=== PATIENT | male | born 1990 | race Caucasian/White ===

== ENCOUNTER 2024-04-16 16:29 | Outpatient (REF) | payer BC, SELFPAY ==
[2024-04-18 13:12] LABS: Chlamydia Result Negative (Negative); GC Result Negative (Negative)
== END 2024-04-16 16:30 | disposition home or self-care (01) ==
LOC: LBN 16:29
PROVIDERS: PCP Family Medicine; Visit Provider Family Medicine
DX: R07.0 Pain in throat (principal); Z20.818 Contact with and (suspected) exposure to other bacterial communicable diseases; Z11.3 Encounter for screening for infections with a predominantly sexual mode of transmission
CPT/HCPCS: 87491; 87591; 87070

== ENCOUNTER 2024-04-18 04:54 | Outpatient (CLI) | payer BC, SELFPAY ==
[2024-04-20 08:52] LABS: HIV-1/2 Ag & Ab Screen Negative (Negative)
[2024-04-20 09:37] LABS: HBs Antibody, Qual Positive (See Note); HBs Antibody, Quant >1000.0 mIU/mL (See Note); Hepatitis B Core Antibody Negative (Negative); Hepatitis B surface Ag Negative (Negative); Hepatitis C Ab w Rflx HCV PCR Negative (Negative)
[2024-04-20 10:02] LABS: Syphilis Serology (RPR) Negative (Negative)
== END 2024-04-18 04:55 | disposition home or self-care (01) ==
LOC: LBO 04:54
PROVIDERS: Absent Provider Family Medicine; PCP Family Medicine; Referring Provider Family Medicine; Visit Provider Family Medicine
DX: Z11.3 Encounter for screening for infections with a predominantly sexual mode of transmission (principal)
CPT/HCPCS: 36415; 86704; 86706; 86803; 87340; 87389; 86592

== ENCOUNTER 2024-10-18 15:23 | Outpatient (REF) | payer BC, SELFPAY ==
[2024-10-22 15:37] LABS: Appearance Normal; Container Type 50 mL Conical; Double Forms 2.5 %; Grade 2.5 (>=2.5); Head Shape Abnormal 27.5 %; Midpiece Defect 24.5 %; Motile/Ejaculate 109.5 x10(6) (>=9.0); Motile/mL 43.8 x10(6) (>=6.0); Motility 56 % (>=40); Semen Volume 2.5 mL (>=1.5); Sperm/mL 78.2 x10(6) (>=15.0); Study Type Semen; Tail Defect 13.5 %
== END 2024-10-18 15:24 | disposition home or self-care (01) ==
LOC: LBN 15:23
PROVIDERS: PCP Family Medicine; Visit Provider Family Medicine
DX: Z31.41 Encounter for fertility testing (principal)
CPT/HCPCS: 89240; 89310